=== PATIENT | female | born 1970 | race Caucasian/White ===

== ENCOUNTER 2018-01-11 13:23 | Emergency (ER) | payer MEDICARE, MEDICAID ==
[~2018-01-11] VITALS: Ht 170.2 cm; Wt 78.9 kg
[~2018-01-11 13:23] MED LIST: ATOM40CA PO; CLON-527 PO; DIPH25CA83 PO; DULO20CA50 PO; LIT300C PO
[2018-01-11 13:59] VITALS: BP 130/67
[2018-01-11] MEDS ORDERED: clonazePAM 1mg tablet PO ONE (14:20)
[2018-01-11] MEDS ORDERED: CLON-527 PO (14:22)
[2018-01-11] MEDS ORDERED: DULO20CA50 PO (14:22)
[2018-01-11] MEDS ORDERED: LAMO200T2 PO (14:22)
== END 2018-01-11 14:33 | disposition home or self-care (01) ==
LOC: ER 13:24
DX: F41.9 Anxiety disorder, unspecified (principal); Z76.0 Encounter for issue of repeat prescription; Z88.5 Allergy status to narcotic agent; Z88.0 Allergy status to penicillin; Z88.2 Allergy status to sulfonamides; Z79.899 Other long term (current) drug therapy
CPT/HCPCS: 99283

== ENCOUNTER 2018-05-23 23:49 | Emergency (ER) | payer MEDICARE, MEDICAID ==
[~2018-05-23] VITALS: Ht 170.2 cm; Wt 84.0 kg
[2018-05-23 23:55] VITALS: BP 100/75
== END 2018-05-24 00:24 | disposition home or self-care (01) ==
LOC: ER 23:50
DX: F31.9 Bipolar disorder, unspecified (principal); F41.9 Anxiety disorder, unspecified; F28 Other psychotic disorder not due to a substance or known physiological condition; Z79.899 Other long term (current) drug therapy; Z88.0 Allergy status to penicillin; Z88.2 Allergy status to sulfonamides; Z88.5 Allergy status to narcotic agent
CPT/HCPCS: 99284

== ENCOUNTER 2019-06-30 10:59 | Inpatient (IN) | payer MEDICARE, MEDICAID ==
[~2019-06-30] VITALS: Ht 170.2 cm; Wt 79.0 kg
[2019-06-30] MEDS ORDERED: magnesium hydroxide 30ml (MOM) UD suspension PO PRN (12:30)
[2019-06-30] MEDS ORDERED: mag hydrox/Alum hydrox/simeth 30ml oral suspension PO PRN (12:30)
[2019-06-30] MEDS ORDERED: acetaminophen 325mg tablet PO PRN ×2 (12:30)
[2019-06-30] MEDS ORDERED: LORazepam 1 MG tablet PO PRN (12:30)
[2019-06-30] MEDS ORDERED: loperamide 2mg capsule PO PRN (12:30)
--- NOTE | 2019-06-30 16:07 | NUR ---
Admit Note: Juju Legal Hold: 5150 Client on involuntary status for DTS. Report received from JO Villavicencio with use of SBAR. Why are they here: Pt had SA via OD on 06/29/19, pt took 1800mg of Gabapentin, later took 10 OTC Benadryl tabs, also ingested ETOH and snorted Meth. Pt reports having a "nervous breakdown." She has h/o Bipolar, Bordeline, PTSD & ADHD. Pt reports "things have been difficult at home" and that her and her boyfriend (of two weeks) have not been getting along. Pt as traumatic history of finding son in his crib in 1991 which she reports, "I'm paying dearly for," her mother committed suicide an unknown number of years ago, and pt was on probation/parole in 2012 for DUI. Pt tox screen was positive for Amph, reports recently drinking ETOH and has history of THC. Pt has no solid support system and reports, "My kids have disowned me because I'm a crack head." Assessment: Pt is somewhat difficult to interview as she is irritable and easily distracted. Skin 2 skin was completed by this insurance underwriter and Maye OSORIO. Belongings were logged and no contraband was found. After skin assessment pt requests to use the phone and later was found tearful in the hallway. 1:1 assessment completed at bedside. Pt reports "I have these mood swings where I go from angry to sad to okay." She is concerned about her med rec and inquires how it works and what meds she will be put on. Pt eager to speak with the doctor. S/I, H/I: None reported or observed. Pt has a history of SI, but no attempts. A/VH: Pt denies Sleep: Refer to Sleep Assessment ADL's: Independent Group attendance: fast food shift supervisor, no group Were meds taken: Only had Glucophage 500mg once; Humulin R 12 units once. Any med S/E: None reported or observed. Mental Status Exam Appearance: Clean, wearing green unit scrubs and devries beanie Eye contact: Direct Behavior: Cooperative Speech: Clear, soft, tangential Mood: Labile Affect: Congruent with mood Thought process: tangential Thought Content: Pt wants to eat, booker, "lied to by [facility] people, they know better, I used to be a [employer]." Cognition: A & O X4 Insight: Poor Judgment: Poor Interventions PRN's used: Therapeutic interventions: Introduced self and established rapport, 1:1 assessment, medication administration/education/monitoring, reality orientation; Q15 min safety checks. Restraints/seclusion/emergency medication: None Justification of Continued Inpatient Treatment: Pt needs interruption of current crisis with initiation and adjustment of medication in a safe and therapeutic environment. Addendum: 06/30/19 at 1610 by Olga Riley RN Group attendance: Pt did attend group Were meds taken: Pt is not on DM medications and has no medications ordered yet other than PRNs.
[2019-06-30] MEDS ORDERED: DULO30CA52 (16:32)
[2019-06-30] MEDS ORDERED: LAMO200T10 (16:32)
[2019-06-30] MEDS ORDERED: QUET25TA34 (16:32)
[2019-06-30] MEDS ORDERED: GABA600T13 (16:32)
[2019-06-30] MEDS ORDERED: SUMA50TA17 (16:32)
[2019-06-30] MEDS ORDERED: NICO-687 (16:32)
[2019-06-30] MEDS ORDERED: MOME30SO2 (16:32)
[2019-06-30] MEDS ORDERED: QUET25TA34 PO (17:18)
[2019-06-30] MEDS ORDERED: NICO-687 TOP (17:18)
[2019-06-30] MEDS ORDERED: DULO30CA52 PO (17:18)
[2019-06-30] MEDS ORDERED: LAMO200T10 PO (17:18)
[2019-06-30] MEDS ORDERED: SUMA50TA17 PO (17:18)
[2019-06-30] MEDS ORDERED: GABA600T13 PO (17:18)
[2019-06-30] MEDS ORDERED: MOME30SO2 PO (17:18)
[2019-06-30] MEDS: hydrOXYzine 25 MG tablet PO PRN (17:51)
[2019-06-30] MEDS ORDERED: SUMAtriptan 25 MG tablet PO PRN (19:15)
[2019-06-30] MEDS ORDERED: MOMETASONE FUROATE 0.1% TP SCH (19:15)
[2019-06-30 20:00] VITALS: BP 108/53
[2019-06-30] MEDS ORDERED: lamoTRIgine 100mg tablet PO SCH ×2 (20:00)
[2019-06-30] MEDS: QUEtiapine 25mg tablet PO SCH (20:39)
[2019-06-30] MEDS: gabapentin 300mg capsule PO SCH (20:39)
[2019-06-30] MEDS: triamcinolone acet 0.1% cream 15gm TP SCH (20:46)
--- NOTE | 2019-07-01 02:36 | NUR ---
Nursing Progress Note: Legal hold: 5150 Client on involuntary status for DTS Report received from nurse with use of SBAR: Maye RN Why are they here: Pt. transferred from [facility] in [facility]. Pt had SA via OD on 06/29/19, pt took 1800mg of Gabapentin, later took 10 OTC Benadryl tabs, also ingested ETOH and snorted Meth. Pt reports having a "nervous breakdown." She has h/o Bipolar, Bordeline, PTSD & ADHD. Pt reports "things have been difficult at home" and that her and her boyfriend (of two weeks) have not been getting along. Pt as traumatic history of finding son in his crib in 1991 which she reports, "I'm paying dearly for," her mother committed suicide an unknown number of years ago, and pt was on probation/parole in 2012 for DUI. Pt tox screen was positive for amphetamines. Assessment What has happened this shift: Pt. in bed sleeping throughout the first part of the shift, she was awakened for medication administration and HS snack. 1:1 completed at bedside, pt. presents as cooperative, fatigued, anxious, withdrawn, and guarded. She currently denies S/I or plan, however states, "I don't really remember what happened, but I don't want to minimize it." She goes on to report that she has a history of overdose attempts, and previously took another overdose of Benadryl at the beginning of this year after a break-up with her of 20 years. Pt. then states, "Now I'm with this other mary and we have been arguing." She admits that she believed that her current boyfriend had been cheating on her and accused him of this, however then states, "That's what drugs do." Pt. reports that she has been clean from drugs for a week now and she is trying to help her boyfriend stay clean as well. She calls and speaks to her BF on the telephone, and afterwards reports anxiety and a h/a and requests PRN Ativan and Tylenol, administered with effectiveness. S/I, H/I: Currently denies A/VH: Denies Sleep: Pt. reports she has been sleeping well ADL's: Requires some prompting from staff Group attendance: Pt. attends HS snack Were meds taken: Yes Any med S/E: None Mental Status Exam Appearance: Shaved head and wearing a beanie, appropriately dressed Eye contact: Good Behavior: Cooperative, fatigued, anxious, withdrawn, and guarded Speech: Rapid, pressured, and intense at times Mood: Anxious Affect: Blunted Thought process: Tangental, however able to be redirected Thought Content: Preoccupation regarding relationship with boyfriend Cognition: A&O X4 Insight: Poor Judgment: Poor Interventions PRN's used: Tylenol and Ativan Therapeutic interventions: Introduced self and established rapport, ensured contract for safety, maintained a safe and therapeutic environment, encouraged independent performance of ADLs, provided clear and simple instructions, and maintained Q 15 min safety checks. Restraints/seclusion/emergency medication: N/A Justification of Continued Inpatient Treatment:Pt. requires interruption of current crisis, medication adjustments, and a safe and supportive environment.
[2019-07-01 06:39] LABS: HEMOGLOBIN A1C 5.2 % (4.5-6.2)
[2019-07-01 06:47] LABS: CHOL/HDL RATIO 2.2 (0.00-4.99); CHOLESTEROL 172 MG/DL (0-200); HDL CHOLESTEROL 77 MG/DL (35-60); LDL CHOLESTEROL 83 MG/DL (50-100); TRIGLYCERIDES 80 MG/DL (20-135)
[2019-07-01] MEDS: QUEtiapine 25mg tablet PO SCH (07:49)
[2019-07-01] MEDS: nicotine 21mg patch - 24 hr TD SCH (07:49)
[2019-07-01] MEDS: lamoTRIgine 100mg tablet PO SCH (07:49)
[2019-07-01] MEDS: gabapentin 300mg capsule PO SCH ×2 (07:49→13:00)
[2019-07-01 08:00] VITALS: BP 105/58
[2019-07-01] MEDS ORDERED: duloxetine 30mg CAPSULE.DR PO SCH (08:00)
--- NOTE | 2019-07-01 08:06 | NUR ---
Pt refused the 0800 order for Gabapentin AM dose. Addendum: 07/01/19 at 1436 by Olga Mason RN Pt refused her 1300 dose of Gabapentin.
[2019-07-01] MEDS ORDERED: bisacodyl 10mg suppository rectal RC PRN (12:40)
--- NOTE | 2019-07-01 15:24 | NUR ---
Nursing Progress Note: Legal hold: 5150 Client on involuntary status for DTS Report received from nurse with use of SBAR: Elisa RN Why are they here: Pt. transferred from [facility] in [facility]. Pt had SA via OD on 06/29/19, pt took 1800mg of Gabapentin, later took 10 OTC Benadryl tabs, also ingested ETOH and snorted Meth. Pt reports having a "nervous breakdown." She has h/o Bipolar, Bordeline, PTSD & ADHD. Pt reports "things have been difficult at home" and that her and her boyfriend (of two weeks) have not been getting along. Pt as traumatic history of finding son in his crib in 1991 which she reports, "I'm paying dearly for," her mother committed suicide an unknown number of years ago, and pt was on probation/parole in 2012 for DUI. Pt tox screen was positive for amphetamines. Assessment What has happened this shift: Pt slept until breakfast. Provided medication education during medication administration since she was resistant to take most of her AM medications. Pt does not want to take any gabapentin she states, "it makes me tired, I take it for anxiety." Pt called significant other. Slept on and off during the shift. S/I, H/I: Denies A/VH: Denies Sleep: Napped ADL's: Requires encouragement and prompts Group attendance: Yes; both groups Were meds taken: Did not take gabapentin Any med S/E: None Mental Status Exam Appearance: Shaved head and wearing a beanie, appropriately dressed Eye contact: Good Behavior: Cooperative Speech: Pressured Mood: Anxious Affect: Blunted Thought process: Tangential, able to be redirected Thought Content: Preoccupation regarding relationship with boyfriend Cognition: A&O X4 Insight: Poor Judgment: Poor Interventions PRN's used: N/A Therapeutic interventions: Provided therapeutic communication and active listening, provided medication administration/education/monitoring, encouraged to come out of room and attend groups and maintained Q 15 min safety checks. Restraints/seclusion/emergency medication: N/A Justification of Continued Inpatient Treatment:Pt. requires interruption of current crisis, medication adjustments, and a safe and supportive environment.
[2019-07-01] MEDS ORDERED: QUEtiapine 25mg tablet PO PRN (15:55)
[2019-07-01 19:52] VITALS: BP 126/78
[2019-07-01] MEDS: hydrOXYzine 25 MG tablet PO PRN (21:16)
[2019-07-01] MEDS: docusate sod 100mg capsule PO SCH (21:16)
[2019-07-01] MEDS: triamcinolone acet 0.1% cream 15gm TP SCH (21:20)
--- NOTE | 2019-07-02 02:13 | NUR ---
Nursing Progress Note: Legal hold: 5150 Client on involuntary status for DTS Report received from nurse with use of SBAR: Maye RN Why are they here: Pt. transferred from [facility] in [facility]. Pt had SA via OD on 06/29/19, pt took 1800mg of Gabapentin, later took 10 OTC Benadryl tabs, also ingested ETOH and snorted Meth. Pt reports having a "nervous breakdown." She has h/o Bipolar, Bordeline, PTSD & ADHD. Pt reports "things have been difficult at home" and that her and her boyfriend (of two weeks) have not been getting along. Pt as traumatic history of finding son in his crib in 1991 which she reports, "I'm paying dearly for," her mother committed suicide an unknown number of years ago, and pt was on probation/parole in 2012 for DUI. Pt tox screen was positive for amphetamines. Assessment What has happened this shift: Pt. in bed at the beginning of the shift, and remains here throughout the shift. 1:1 completed at bedside, pt. presents as cooperative, fatigued, anxious, and guarded. She continues to deny S/I and any H/A, and does not appear to be internally preoccupied. Pt. may be minimizing any s/s of depression, and speech is minimal, however rapid and pressured. She reports she is anxious to get home and see her boyfriend. PRN Atrax requested at HS, administered with effectiveness. S/I, H/I: Currently denies A/VH: Denies Sleep: Pt. reports she has been sleeping well ADL's: Requires some prompting from staff Group attendance: Pt. attends HS snack and returns immediately to bed Were meds taken: Yes Any med S/E: None Mental Status Exam Appearance: Shaved head and wearing a beanie, appropriately dressed Eye contact: Good Behavior: Cooperative, fatigued, anxious, withdrawn, and guarded Speech: Rapid, pressured, and intense at times Mood:Guarded Affect: Constricted Thought process: Tangental, however able to be redirected Thought Content: Preoccupation regarding relationship with boyfriend Cognition: A&O X4 Insight: Poor Judgment: Poor Interventions PRN's used: Atrax Therapeutic interventions: Ensured contract for safety, maintained a safe and therapeutic environment, encouraged independent performance of ADLs, provided clear and simple instructions, and maintained Q 15 min safety checks. Restraints/seclusion/emergency medication: N/A Justification of Continued Inpatient Treatment:Pt. requires interruption of current crisis, medication adjustments, and a safe and supportive environment.
[2019-07-02] MEDS: duloxetine 30mg CAPSULE.DR PO SCH (07:40)
[2019-07-02] MEDS: nicotine 21mg patch - 24 hr TD SCH (07:41)
[2019-07-02] MEDS: docusate sod 100mg capsule PO SCH ×2 (07:41→21:01)
[2019-07-02] MEDS: lamoTRIgine 100mg tablet PO SCH (08:00)
[2019-07-02] MEDS: lamoTRIgine 25mg tablet PO SCH (08:00)
[2019-07-02 08:12] VITALS: BP 112/78
[2019-07-02] MEDS: levoFLOXACIN 750MG TABLET PO SCH (10:55)
[2019-07-02] MEDS ORDERED: lamoTRIgine 25mg tablet PO ONE (12:05)
[2019-07-02] MEDS ORDERED: lamoTRIgine 25mg tablet PO SCH (12:05)
--- NOTE | 2019-07-02 15:15 | NUR ---
Met with Ct to complete psychosocial assessment. She was cooperative with the process, however, was not feeling well and was sweating. She reported she had just taken her PM medication because she did not get it last night. She reported she wants to go home. She reported she sees a Tele-psych at [facility] in [place]. She reported she plans on re-engaging with [facility]. CARLOS Smalls Addendum: 07/02/19 at 1517 by Paris Juarez Amended: Links added.
--- NOTE | 2019-07-02 17:19 | NUR ---
Nursing Progress Note: Legal hold: 5150 Client on involuntary status for DTS Report received from nurse with use of SBAR: Kary RN Why are they here: Pt. transferred from [facility] in [facility]. Pt had SA via OD on 06/29/19, pt took 1800mg of Gabapentin, later took 10 OTC Benadryl tabs, also ingested ETOH and snorted Meth. Pt reports having a "nervous breakdown." She has h/o Bipolar, Bordeline, PTSD & ADHD. Pt reports "things have been difficult at home" and that her and her boyfriend (of two weeks) have not been getting along. Pt as traumatic history of finding son in his crib in 1991 which she reports, "I'm paying dearly for," her mother committed suicide an unknown number of years ago, and pt was on probation/parole in 2012 for DUI. Pt tox screen was positive for amphetamines. Assessment What has happened this shift: Pt slept until breakfast. Again, refused her Lamictal in the AM. Once seen by the PA she agreed to take Lamictal 25mg and 200mg HS. Pt slept most of the shift; up for meals, snacks and one group. Neurontin discontinued. S/I, H/I: Denies A/VH: Denies Sleep: Napped ADL's: Requires encouragement and prompts Group attendance: Yes Were Meds taken: Yes Any med S/E: None reported or observed Mental Status Exam Appearance: Shaved head wears a beanie, appropriately dressed Eye contact: Good Behavior: Cooperative Speech: Pressured Mood: Anxious Affect: Blunted Thought process: Tangential, able to be redirected Thought Content: Preoccupation regarding relationship with boyfriend Cognition: A&O X4 Insight: Poor Judgment: Fair Interventions PRN's used: N/A Therapeutic interventions: Provided therapeutic communication and active listening, provided medication administration/education/monitoring, encouraged to come out of room and attend groups and maintained Q 15 min safety checks. Restraints/seclusion/emergency medication: N/A Justification of Continued Inpatient Treatment:Pt. requires interruption of current crisis, medication adjustments, and a safe and supportive environment.
[2019-07-02 19:48] VITALS: BP 120/57
[2019-07-02] MEDS ORDERED: lamoTRIgine 100mg tablet PO SCH (21:00)
[2019-07-02] MEDS: triamcinolone acet 0.1% cream 15gm TP SCH (21:07)
[2019-07-02] MEDS: hydrOXYzine 25 MG tablet PO PRN (21:15)
--- NOTE | 2019-07-03 01:05 | NUR ---
Nursing Progress Note: Legal hold: 5150 Client on involuntary status for DTS Report received from nurse with use of SBAR: JO Price Why are they here: Pt. transferred from [facility] in [facility]. Pt had SA via OD on 06/29/19, pt took 1800mg of Gabapentin, later took 10 OTC Benadryl tabs, also ingested ETOH and snorted Meth. Pt reports having a "nervous breakdown." She has h/o Bipolar, Bordeline, PTSD & ADHD. Pt reports "things have been difficult at home" and that her and her boyfriend (of two weeks) have not been getting along. Pt as traumatic history of finding son in his crib in 1991 which she reports, "I'm paying dearly for," her mother committed suicide an unknown number of years ago, and pt was on probation/parole in 2012 for DUI. Pt tox screen was positive for amphetamines. Assessment What has happened this shift: Pt. in bed at the beginning of the shift, and remains here throughout the shift but does attend HS snack. 1:1 completed at bedside, pt. continue to present as cooperative, fatigued, anxious, and guarded. Upon seeing this technical document writer she states, "I want to go home!" Her speech remains rapid and pressured and her thought process is tangental. She continues to deny any S/I. Pt. reports that she plans to enroll in the same drug and alcohol program she attended before in [facility] when she gets home, states, "I know the assessment days." She again reports that she misses her boyfriend and is hoping that the MD will release her tomorrow, PRN Atrax requested for anxiety, administered with effectiveness. S/I, H/I: Denies A/VH: Denies Sleep: Pt. reports she has been sleeping well ADL's: Requires some prompting from staff Group attendance: Pt. reports she has been attending some groups and finds them somewhat helpful Were meds taken: Yes Any med S/E: None Mental Status Exam Appearance: Shaved head, appropriately dressed Eye contact: Good Behavior: Cooperative, fatigued, anxious, withdrawn, and guarded Speech: Rapid, pressured, and intense at times Mood:Guarded Affect: Constricted Thought process: Tangental, however able to be redirected Thought Content: Preoccupation regarding relationship with boyfriend and desire to discharge Cognition: A&O X4 Insight: Poor to fair Judgment: Fair Interventions PRN's used: Atrax and PRN Kenalog Cream Therapeutic interventions: Ensured contract for safety, maintained a safe and therapeutic environment, encouraged independent performance of ADLs, provided clear and simple instructions, and maintained Q 15 min safety checks. Restraints/seclusion/emergency medication: N/A Justification of Continued Inpatient Treatment: Pt. requires medication adjustments, and a safe and supportive environment. Per MD, she will need drug and alcohol rehabilitation and f/u therapy appointments upon discharge.
[2019-07-03 08:08] VITALS: BP 130/43
[2019-07-03] MEDS: duloxetine 30mg CAPSULE.DR PO SCH (08:23)
[2019-07-03] MEDS: docusate sod 100mg capsule PO SCH (08:23)
[2019-07-03] MEDS: lamoTRIgine 25mg tablet PO SCH (08:24)
[2019-07-03] MEDS: nicotine 21mg patch - 24 hr TD SCH (08:25)
[2019-07-03] MEDS: levoFLOXACIN 750MG TABLET PO SCH (10:50)
[2019-07-03] MEDS ORDERED: NICO-687 TD (11:14)
[2019-07-03] MEDS ORDERED: LAMO25TA5 PO (11:14)
[2019-07-03] MEDS ORDERED: DULO30CA52 PO (11:14)
[2019-07-03] MEDS ORDERED: LEVO750T46 PO (11:14)
[2019-07-03] MEDS ORDERED: LAMO100T PO (11:14)
[2019-07-03] MEDS: hydrOXYzine 25 MG tablet PO PRN (11:35)
--- NOTE | 2019-07-03 13:09 | NUR ---
Nursing Progress Note: Legal hold: 5150 Client on involuntary status for DTS Report received from nurse with use of SBAR: Kary RN Why are they here: Pt. transferred from [facility] in [facility]. Pt had SA via OD on 06/29/19, pt took 1800mg of Gabapentin, later took 10 OTC Benadryl tabs, also ingested ETOH and snorted Meth. Pt reports having a "nervous breakdown." She has h/o Bipolar, Bordeline, PTSD & ADHD. Pt reports "things have been difficult at home" and that her and her boyfriend (of two weeks) have not been getting along. Pt as traumatic history of finding son in his crib in 1991 which she reports, "I'm paying dearly for," her mother committed suicide an unknown number of years ago, and pt was on probation/parole in 2012 for DUI. Pt tox screen was positive for amphetamines. Assessment What has happened this shift: Pt. in bed at the beginning of the shift but awake for breakfast. 1:1 completed at bedside, pt. continue to present as cooperative, anxious, and guarded. Pt states she is ready to go home, my hold expires today and asks when the Dr will come. Her speech remains rapid and pressured and her thought process is tangential. She continues to deny any S/I./HI. Pt paces halls on the phone and repeatedly asks when she is going home. Pt asks for something for anxiety. PRN Atarax given. S/I, H/I: Denies A/VH: Denies Sleep: Per noc shift 10.25 hrs. ADL's: Requires some prompting from staff Group attendance: Partial attendance Were meds taken: Yes Any med S/E: None Mental Status Exam Appearance: Shaved head, appropriately dressed Eye contact: Good Behavior: Cooperative, fatigued, anxious, withdrawn, and guarded Speech: Rapid, pressured, and intense at times Mood:Guarded Affect: Constricted Thought process: Tangential, however able to be redirected Thought Content: Preoccupation regarding relationship with boyfriend and desire to discharge Cognition: A&O X4 Insight: Poor to fair Judgment: Fair Interventions PRN's used: Atarax Therapeutic interventions: Ensured contract for safety, maintained a safe and therapeutic environment, encouraged independent performance of ADLs, provided clear and simple instructions, and maintained Q 15 min safety checks. Restraints/seclusion/emergency medication: N/A Justification of Continued Inpatient Treatment: Pt. requires medication adjustments, and a safe and supportive environment. Per MD, she will need drug and alcohol rehabilitation and f/u therapy appointments upon discharge.
--- NOTE | 2019-07-03 13:10 | NUR ---
Pt given all discharge information with verbal understanding, signature and copies of all paperwork. Pt received all personal belongings upon discharge with confirmation of everything brought in received back. Pt denies SI or HI. Pt instructed to make own follow up appointment and states she wants to get back to the rehab place she went to before. Pt ambulatory off unit with tech accompany out to home with boyfriend waiting. NAD.
== END 2019-07-03 13:00 | disposition home or self-care (01) | DRG 885 ==
LOC: ADULT MH 10:59
PROVIDERS: ADMIT Psychiatry & Neurology Psychiatry; ATTEND Psychiatry & Neurology Psychiatry
DX: F31.9 Bipolar disorder, unspecified (principal); R45.851 Suicidal ideations; F17.210 Nicotine dependence, cigarettes, uncomplicated; F19.10 Other psychoactive substance abuse, uncomplicated; F43.10 Post-traumatic stress disorder, unspecified; G43.909 Migraine, unspecified, not intractable, without status migrainosus; T42.6X1A Poisoning by other antiepileptic and sedative-hypnotic drugs, accidental (unintentional), initial encounter; F90.9 Attention-deficit hyperactivity disorder, unspecified type; Z90.49 Acquired absence of other specified parts of digestive tract; Y92.89 Other specified places as the place of occurrence of the external cause
CPT/HCPCS: 36415; 80061; 83036; 84443; 87081; 99285; Z7610